=== PATIENT | female | born 1990 | race Caucasian/White ===

== ENCOUNTER 2024-01-27 11:44 | Emergency (ER) | payer BC, OTHER ==
[~2024-01-27] VITALS: Ht 165.1 cm; Wt 130.0 kg
[2024-01-27 12:02] VITALS: BP 134/83; PULSE 129; RESP 20; TEMP 98; O2SAT 99
[2024-01-27] MEDS ORDERED: NALO4SPR BOTHNSTRLS (14:38)
== END 2024-01-27 11:47 | disposition home or self-care (01) ==
LOC: ER 11:44
DX: R00.2 Palpitations (principal)
CPT/HCPCS: 71045; 93005; 99283